=== PATIENT | male | born 1990 | race Asian ===

== ENCOUNTER 2018-08-12 19:31 | Inpatient (IN) | payer MEDICAID ==
[~2018-08-12] VITALS: Ht 172.7 cm; Wt 77.7 kg
[2018-08-12 19:59] VITALS: BP 89/91
[2018-08-12] MEDS ORDERED: Vancomycin 1 GM in NS 275 ML IV ONE (20:15)
[2018-08-12 20:53] LABS: BASOPHILS % (AUTO) 0.7 % (0.0-2.0); EOSINOPHILS % (AUTO) 0.6 % (0.0-3.0); HEMATOCRIT 48.8 % (42.0-52.0); HEMOGLOBIN 16.9 G/DL (14.2-18.0); LYMPHOCYTES % (AUTO) 10.3 % (20.0-45.0); MEAN CORPUSCULAR VOLUME 86 FL (80-99); MONOCYTES % (AUTO) 8.8 % (1.0-10.0); NEUTROPHILS % (AUTO) 79.6 % (45.0-75.0); PLATELET COUNT 201 K/UL (150-450); RED CELL DISTRIBUTION WIDTH 10.6 % (11.6-14.8); WHITE BLOOD COUNT 13.1 K/UL (4.8-10.8)
[2018-08-12 20:59] LABS: ANION GAP 9 mmol/L (5-15); BLOOD UREA NITROGEN 6 mg/dL (7-18); CALCIUM 9.3 MG/DL (8.5-10.1); CARBON DIOXIDE 28 MMOL/L (21-32); CHLORIDE 102 MMOL/L (98-107); POTASSIUM 3.4 MMOL/L (3.5-5.1); SODIUM 139 MMOL/L (136-145)
[2018-08-12 21:00] VITALS: BP 151/89
[2018-08-12 21:14] LABS: ALANINE AMINOTRANSFERASE 14 U/L (12-78); ALBUMIN/GLOBULIN RATIO 1.7 (1.0-2.7); ALKALINE PHOSPHATASE 78 U/L (46-116); ASPARTATE AMINO TRANSFERASE 13 U/L (15-37); BILIRUBIN,TOTAL 1.2 MG/DL (0.2-1.0)
[2018-08-12 21:17] LABS: BILIRUBIN,DIRECT 0.2 MG/DL (0.0-0.3)
[2018-08-12] MEDS ORDERED: Ketorolac 30mg Inj IV ONE (21:30)
[2018-08-12] MEDS ORDERED: Isovue-300 100ml vial INJ PRN (21:45)
--- NOTE | 2018-08-12 21:45 | Emergency Room Report ---
History of Present Illness General Chief Complaint: Edema Source: Patient (Kaylee Hoskins Liliane MARRERO) Present Illness HPI This patient states that he popped a pimple just inside of his right nare 2 days ago. He states that today he started having swelling just under his nare and in his right side of his face. He denies fever or chills. He denies nausea or vomiting. He has no other complaints. (Kaylee Hoskins DO) Allergies: Coded Allergies: No Known Allergies (Unverified , 08/12/18) Patient History Past Medical History: none, see triage record Social History: Denies: smoking, alcohol use, drug use Reviewed Nursing Documentation: PMH: Agreed; PSxH: Agreed (Kaylee Hoskins DO) Nursing Documentation-PMH Past Medical History: No Stated History (Kaylee Hoskins DO) Review of Systems All Other Systems: negative except mentioned in HPI (Kaylee Hoskins DO) Physical Exam Vital Signs Date Time Temp Pulse Resp B/P (MAP) Pulse Ox O2 Delivery O2 Flow Rate FiO2 08/12/18 19:51 98.8 90 16 144/91 (108) 96 Room Air Sp02 EP Interpretation: reviewed, normal General Appearance: no apparent distress, alert, GCS 15, non-toxic Head: normocephalic, atraumatic, other - R. nare with swelling just inferior to include R. upper lip and R. cheek. Eyes: bilateral eye normal inspection, bilateral eye PERRL ENT: hearing grossly normal, normal pharynx, no angioedema, normal voice Neck: full range of motion, supple/symm/no masses Respiratory: chest non-tender, lungs clear, normal breath sounds, no respiratory distress, no retraction, no accessory muscle use, speaking full sentences Cardiovascular #1: regular rate, rhythm, no edema Rectal: deferred Musculoskeletal: back normal, gait/station normal, normal range of motion, non- tender Neurologic: alert, oriented x3, responsive, motor strength/tone normal, sensory intact, speech normal Psychiatric: judgement/insight normal, memory normal, mood/affect normal, no suicidal/homicidal ideation Skin: warm/dry, well hydrated, other - See above in Head exam. (Kaylee Hoskins DO) Medical Decision Making Diagnostic Impression: Primary Impression: Facial cellulitis ER Course This patient has facial cellulitis that was rapidly progressive over a 24 hour period. I am concerned that this is MRSA and could rapidly worsen and cause significant facial cosmetic or emergency complications. The patient was given IV vancomycin and admitted for monitoring and IV abx. Laboratory Tests Test 08/12/18 20:22 White Blood Count 13.1 K/UL (4.8-10.8) H Red Blood Count 5.70 M/UL (4.70-6.10) Hemoglobin 16.9 G/DL (14.2-18.0) Hematocrit 48.8 % (42.0-52.0) Mean Corpuscular Volume 86 FL (80-99) Mean Corpuscular Hemoglobin 29.7 PG (27.0-31.0) Mean Corpuscular Hemoglobin Concent 34.6 G/DL (32.0-36.0) Red Cell Distribution Width 10.6 % (11.6-14.8) L Platelet Count 201 K/UL (150-450) Mean Platelet Volume 7.1 FL (6.5-10.1) Neutrophils (%) (Auto) 79.6 % (45.0-75.0) H Lymphocytes (%) (Auto) 10.3 % (20.0-45.0) L Monocytes (%) (Auto) 8.8 % (1.0-10.0) Eosinophils (%) (Auto) 0.6 % (0.0-3.0) Basophils (%) (Auto) 0.7 % (0.0-2.0) Sodium Level 139 MMOL/L (136-145) Potassium Level 3.4 MMOL/L (3.5-5.1) L Chloride Level 102 MMOL/L (98-107) Carbon Dioxide Level 28 MMOL/L (21-32) Anion Gap 9 mmol/L (5-15) Blood Urea Nitrogen 6 mg/dL (7-18) L Creatinine 1.0 MG/DL (0.55-1.30) Estimate Glomerular Filtration Rate > 60 mL/min (>60) Glucose Level 112 MG/DL (74-106) H Lactic Acid Level 1.00 mmol/L (0.4-2.0) Calcium Level 9.3 MG/DL (8.5-10.1) Total Bilirubin 1.2 MG/DL (0.2-1.0) H Direct Bilirubin 0.2 MG/DL (0.0-0.3) Aspartate Amino Transferase (AST) 13 U/L (15-37) L Alanine Aminotransferase (ALT) 14 U/L (12-78) Alkaline Phosphatase 78 U/L (46-116) Total Protein 7.9 G/DL (6.4-8.2) Albumin 5.0 G/DL (3.4-5.0) Globulin 2.9 g/dL Albumin/Globulin Ratio 1.7 (1.0-2.7) ([facility], [facility]) ER Course Patient signed out to mi. He has been admitted for facial cellulitis with possible abscess. CT scan signout to me. (Aldo Vasquez MD) CT/MRI/US Diagnostic Results CT/MRI/US Diagnostic Results : Imaging Test Ordered: CT max/facial Impression IMPRESSION: Facial cellulitis. No evidence of abscess ([facility], [facility]) CT/MRI/US Diagnostic Results : Imaging Test Ordered: CT facial bone Impression By radiologist. Soft tissue stranding within the right cheek subcutaneous fat. No fluid collection or abscess. Normal orbital bone. (Aldo Vasquez MD) Last Vital Signs Date Time Temp Pulse Resp B/P (MAP) Pulse Ox O2 Delivery O2 Flow Rate FiO2 08/12/18 19:59 98.8 80 16 89/91 97 Room Air ([facility]) Status: improved (Aldo Vasquez MD) Disposition: ADMITTED INPATIENT Condition: Serious Referrals: NOT CHOSEN IPA/,REFERRING (PCP) [facility] Aug 12, 2018 21:45 Aldo Vasquez MD Aug 12, 2018 22:42
[2018-08-12 22:00] VITALS: BP 132/87
[2018-08-12 23:00] VITALS: BP 121/75
[2018-08-13] VITALS: BP 125/68
[2018-08-13] MEDS ORDERED: NKM (00:22)
[2018-08-13 04:00] VITALS: BP 130/65
[2018-08-13 05:49] LABS: BASOPHILS % (AUTO) 0.9 % (0.0-2.0); EOSINOPHILS % (AUTO) 1.2 % (0.0-3.0); HEMATOCRIT 43.8 % (42.0-52.0); HEMOGLOBIN 15.3 G/DL (14.2-18.0); LYMPHOCYTES % (AUTO) 17.5 % (20.0-45.0); MEAN CORPUSCULAR VOLUME 87 FL (80-99); MONOCYTES % (AUTO) 9.2 % (1.0-10.0); NEUTROPHILS % (AUTO) 71.2 % (45.0-75.0); PLATELET COUNT 196 K/UL (150-450); RED BLOOD COUNT 5.05 M/UL (4.70-6.10); WHITE BLOOD COUNT 11.1 K/UL (4.8-10.8)
[2018-08-13 06:09] LABS: ANION GAP 8 mmol/L (5-15); BLOOD UREA NITROGEN 5 mg/dL (7-18); CALCIUM 8.2 MG/DL (8.5-10.1); CARBON DIOXIDE 25 MMOL/L (21-32); CHLORIDE 107 MMOL/L (98-107); CREATININE 0.9 MG/DL (0.55-1.30); POTASSIUM 3.5 MMOL/L (3.5-5.1); SODIUM 140 MMOL/L (136-145)
[2018-08-13 08:00] VITALS: BP 135/76
[2018-08-13] MEDS: Vancomycin 1gm/D5W 275ml IVPB SCH ×8 (08:12→21:51)
[2018-08-13] MEDS: Morphine Sulfate 2mg/ml Inj(IV/IM USE ONLY) IVP PRN ×4 (08:17→23:21)
--- NOTE | 2018-08-13 11:06 | Diagnostic Imaging Report ---
Indication: Cellulitis. Abscess. Technique: Continuous helical transaxial imaging of the maxillofacial structures obtained after intravenous contrast administration. Coronal 2-D reformats were also obtained. Study obtained in a Siemens sensation [address] Total Dose length Product (DLP): 585.[address] Dose Index Volume (CTDIvol): 28.19 mGy Comparison: None Findings: There is soft tissue thickening and stranding indicative of inflammation involving the premaxillary region just below the nose. Findings presently on the basis of cellulitis. There is no fluid collection identified to suggest abscess. Paranasal sinuses are clear. Mastoids are clear bilaterally. IMPRESSION: Facial cellulitis. No evidence of abscess
[2018-08-13 12:00] VITALS: BP 130/80
--- NOTE | 2018-08-13 13:15 | History and Physical Report ---
DATE OF ADMISSION: 08/12/2018 REASON FOR ADMISSION: Facial swelling. HISTORY OF PRESENT ILLNESS: The patient is a 28-year-old gentleman, who states he had burst his pimple on the inside of his right naris two days prior and since then, his nasal naris area and lip had become swollen. No nausea or vomiting. No fevers or chills. He was admitted for IV antibiotics. PAST MEDICAL HISTORY: None. FAMILY HISTORY: Noncontributory. PAST SURGICAL HISTORY: None. ALLERGIES: No known drug allergies. REVIEW OF SYSTEMS: NEUROLOGIC: The patient denies headache, change in vision, syncope, or presyncopal episodes. CARDIOVASCULAR: No current chest pain, palpitations, or angina. PULMONARY: No difficulty breathing, productive cough, or sputum. GASTROINTESTINAL/GENITOURINARY: No change in bowel habits. No nausea, vomiting, or diarrhea. ENDOCRINOLOGY: No night sweats, fevers, or chills. MUSCULOSKELETAL: The patient is feeling otherwise well. LABORATORY DATA: Laboratories dated August 13, 2018, sodium 140, potassium 3.5, creatinine 0.9, calcium 8.2. White cell count 11.1 and platelet count 196. PHYSICAL EXAMINATION: VITAL SIGNS: Blood pressure 130/65, respiratory rate 18, pulse 73, temperature 98.3, and 96% oxygen saturation on room air. GENERAL: The patient awake, alert, not otherwise in distress. HEENT: Extraocular muscles intact. No lymphadenopathy noted. Facial exam with right naris noted crusting and area swollen. CARDIOVASCULAR: S1, S2. No rubs or gallops. PULMONARY: Clear to auscultation bilaterally. No rales, rhonchi, or wheezes. ABDOMEN: Nondistended and nontender. EXTREMITIES: No edema. ASSESSMENT AND PLAN: 1. Facial cellulitis in the right naris area. CT of the face is currently still pending. Vancomycin was initiated and Infectious Disease consult placed for further evaluation and management. Anticipation and resolution of underlying infection and possible discharge tomorrow. 2. DVT prophylaxis with SCDs. 3. Continue antibiotics per Infectious Disease. Jose Ayoub MD DR: DILLAN/SOULEYMANE JOB#: [id number] CC:
--- NOTE | 2018-08-13 14:12 | Infectious Diseases Prog Note ---
Assessment/Plan Assessment/Plan Full consult to follow: right facial cellulitis CT M/F - no abscess but c/w cellulitis allergies negative vancomycin and unasyn monitor clinically thank you Subjective Allergies: Coded Allergies: No Known Allergies (Unverified , 08/12/18) Objective Vital Signs Last 24 Hour Vital Signs Date Time Temp Pulse Resp B/P (MAP) Pulse Ox O2 Delivery O2 Flow Rate FiO2 08/13/18 12:00 98.8 83 20 130/80 (97) 99 08/13/18 10:39 Room Air 08/13/18 08:00 98.3 79 20 135/76 (95) 98 08/13/18 04:00 98.3 73 18 130/65 (86) 96 08/13/18 00:28 Room Air 08/13/18 00:00 98.5 77 17 125/68 (87) 96 08/12/18 23:19 82 25 121/75 100 Room Air 08/12/18 23:00 98.8 80 22 121/75 99 Room Air 08/12/18 22:00 98.8 85 27 132/87 98 Room Air 08/12/18 21:44 98.8 08/12/18 21:00 98.8 82 22 151/89 100 Room Air 08/12/18 19:59 98.8 80 16 89/91 97 Room Air 08/12/18 19:59 80 18 Room Air 08/12/18 19:51 98.8 90 16 144/91 (108) 96 Room Air Height (Feet): 5 Height (Inches): 8.00 Weight (Pounds): 160 Laboratory Tests Test 08/12/18 20:22 08/13/18 05:03 White Blood Count 13.1 K/UL (4.8-10.8) H 11.1 K/UL (4.8-10.8) H Red Blood Count 5.70 M/UL (4.70-6.10) 5.05 M/UL (4.70-6.10) Hemoglobin 16.9 G/DL (14.2-18.0) 15.3 G/DL (14.2-18.0) Hematocrit 48.8 % (42.0-52.0) 43.8 % (42.0-52.0) Mean Corpuscular Volume 86 FL (80-99) 87 FL (80-99) Mean Corpuscular Hemoglobin 29.7 PG (27.0-31.0) 30.4 PG (27.0-31.0) Mean Corpuscular Hemoglobin Concent 34.6 G/DL (32.0-36.0) 35.0 G/DL (32.0-36.0) Red Cell Distribution Width 10.6 % (11.6-14.8) L 11.0 % (11.6-14.8) L Platelet Count 201 K/UL (150-450) 196 K/UL (150-450) Mean Platelet Volume 7.1 FL (6.5-10.1) 7.8 FL (6.5-10.1) Neutrophils (%) (Auto) 79.6 % (45.0-75.0) H 71.2 % (45.0-75.0) Lymphocytes (%) (Auto) 10.3 % (20.0-45.0) L 17.5 % (20.0-45.0) L Monocytes (%) (Auto) 8.8 % (1.0-10.0) 9.2 % (1.0-10.0) Eosinophils (%) (Auto) 0.6 % (0.0-3.0) 1.2 % (0.0-3.0) Basophils (%) (Auto) 0.7 % (0.0-2.0) 0.9 % (0.0-2.0) Sodium Level 139 MMOL/L (136-145) 140 MMOL/L (136-145) Potassium Level 3.4 MMOL/L (3.5-5.1) L 3.5 MMOL/L (3.5-5.1) Chloride Level 102 MMOL/L (98-107) 107 MMOL/L (98-107) Carbon Dioxide Level 28 MMOL/L (21-32) 25 MMOL/L (21-32) Anion Gap 9 mmol/L (5-15) 8 mmol/L (5-15) Blood Urea Nitrogen 6 mg/dL (7-18) L 5 mg/dL (7-18) L Creatinine 1.0 MG/DL (0.55-1.30) 0.9 MG/DL (0.55-1.30) Estimat Glomerular Filtration Rate > 60 mL/min (>60) > 60 mL/min (>60) Glucose Level 112 MG/DL (74-106) H 102 MG/DL (74-106) Lactic Acid Level 1.00 mmol/L (0.4-2.0) Calcium Level 9.3 MG/DL (8.5-10.1) 8.2 MG/DL (8.5-10.1) L Total Bilirubin 1.2 MG/DL (0.2-1.0) H Direct Bilirubin 0.2 MG/DL (0.0-0.3) Aspartate Amino Transf (AST/SGOT) 13 U/L (15-37) L Alanine Aminotransferase (ALT/SGPT) 14 U/L (12-78) Alkaline Phosphatase 78 U/L (46-116) Total Protein 7.9 G/DL (6.4-8.2) Albumin 5.0 G/DL (3.4-5.0) Globulin 2.9 g/dL Albumin/Globulin Ratio 1.7 (1.0-2.7) Current Medications Medications (Trade) Dose Ordered Sig/Salazar Route PRN Reason Start Time Stop Time Status Last Admin Dose Admin Acetaminophen (Tylenol) 650 mg Q4H PRN ORAL Mild Pain (Pain Scale 1-3) 08/12/18 22:30 09/11/18 22:29 Dextrose (Dextrose 50%) 25 ml Q30M PRN IV Hypoglycemia 08/12/18 22:30 09/11/18 22:29 Dextrose (Dextrose 50%) 50 ml Q30M PRN IV Hypoglycemia 08/12/18 22:30 09/11/18 22:29 Diphenhydramine HCl (Benadryl) 25 mg Q6H PRN ORAL Itching/Pruritis 08/12/18 22:30 09/11/18 22:29 Famotidine (Pepcid) 40 mg DAILY ORAL 08/13/18 09:00 09/12/18 08:59 08/13/18 08:12 Iopamidol (Isovue-300 100ml) 100 ml NOW PRN INJ Radiology Procedure 08/12/18 21:45 08/14/18 21:45 Morphine Sulfate (Morphine Sulfate) 1 mg Q6H PRN IVP For Pain 08/12/18 22:30 08/19/18 22:29 08/13/18 08:17 Ondansetron HCl (Zofran) 4 mg Q6H PRN IVP Nausea & Vomiting 08/12/18 22:30 09/11/18 22:29 Sodium Chloride 1,000 ml @ 100 mls/hr Q10H IV 08/12/18 22:30 09/11/18 22:29 08/13/18 08:12 Vancomycin HCl (Vanco rx to dose) 1 ea DAILY PRN MISC Per rx protocol 08/13/18 07:30 09/12/18 07:29 Vancomycin HCl 1 gm/Dextrose 275 ml @ 183.708 mls/hr Q8HR IVPB 08/13/18 08:00 08/18/18 07:59 08/13/18 08:12 Dariana Daily MD Aug 13, 2018 14:12
[2018-08-13 16:00] VITALS: BP 126/84
[2018-08-13] MEDS: Ampicillin/Sulbactam Sod 3 GM in NS 110 ML IVPB SCH ×2 (16:11→23:59)
[2018-08-13 20:00] VITALS: BP 136/91
[2018-08-14] VITALS: BP 134/87
[2018-08-14 04:00] VITALS: BP 141/92
[2018-08-14] MEDS: Morphine Sulfate 2mg/ml Inj(IV/IM USE ONLY) IVP PRN ×5 (04:03→20:20)
[2018-08-14] MEDS: Ampicillin/Sulbactam Sod 3 GM in NS 110 ML IVPB SCH ×4 (05:08→23:05)
[2018-08-14 05:23] LABS: HEMATOCRIT 44.4 % (42.0-52.0); HEMOGLOBIN 15.6 G/DL (14.2-18.0); LYMPHOCYTES % (AUTO) 16.1 % (20.0-45.0); MEAN CORPUSCULAR VOLUME 86 FL (80-99); MONOCYTES % (AUTO) 9.8 % (1.0-10.0); NEUTROPHILS % (AUTO) 71.2 % (45.0-75.0); PLATELET COUNT 190 K/UL (150-450); RED BLOOD COUNT 5.17 M/UL (4.70-6.10); RED CELL DISTRIBUTION WIDTH 10.9 % (11.6-14.8); WHITE BLOOD COUNT 10.9 K/UL (4.8-10.8)
[2018-08-14 05:41] LABS: ANION GAP 8 mmol/L (5-15); BLOOD UREA NITROGEN 2 mg/dL (7-18); CALCIUM 8.4 MG/DL (8.5-10.1); CARBON DIOXIDE 28 MMOL/L (21-32); CHLORIDE 105 MMOL/L (98-107); CREATININE 0.9 MG/DL (0.55-1.30); POTASSIUM 3.4 MMOL/L (3.5-5.1); SODIUM 141 MMOL/L (136-145)
[2018-08-14] MEDS: Vancomycin 1gm/D5W 275ml IVPB SCH ×6 (06:22→16:17)
--- NOTE | 2018-08-14 06:59 | Nephrology Progress Note ---
Assessment/Plan Assessment/Plan: A/P 1) Facial Cellulitis- No abscess - Vanc + Unasyn - DC patient on po Abx once cleared by ID 2) Dehydration- resolved. DC IVFs Subjective Date patient seen: Aug 14, 2018 Time patient seen: 06:58 ROS Limited/Unobtainable: No Allergies: Coded Allergies: No Known Allergies (Unverified , 08/12/18) Subjective Patient still with swollen face and lip Objective Last 24 Hour Vital Signs Date Time Temp Pulse Resp B/P (MAP) Pulse Ox O2 Delivery O2 Flow Rate FiO2 08/14/18 04:33 98.4 08/14/18 04:00 99.1 82 17 141/92 (108) 98 08/14/18 00:00 98.4 81 18 134/87 (103) 98 08/13/18 21:00 Room Air 08/13/18 20:00 98.6 78 17 136/91 (106) 98 08/13/18 16:00 98.5 89 19 126/84 (98) 98 08/13/18 12:00 98.8 83 20 130/80 (97) 99 08/13/18 10:39 Room Air 08/13/18 08:00 98.3 79 20 135/76 (95) 98 Intake and Output 08/13/18 08/14/18 19:00 07:00 Intake Total 2660.000 ml 2495.000 ml Balance 2660.000 ml 2495.000 ml Intake Oral 1200 ml 1000 ml IV Total 1460.000 ml 1495.000 ml # Voids 4 3 # Bowel Movements 1 Laboratory Tests 08/14/18 05:01: White Blood Count 10.9H, Red Blood Count 5.17, Hemoglobin 15.6, Hematocrit 44.4 , Mean Corpuscular Volume 86, Mean Corpuscular Hemoglobin 30.1, Mean Corpuscular Hemoglobin Concent 35.1, Red Cell Distribution Width 10.9L, Platelet Count 190, Mean Platelet Volume 8.1, Neutrophils (%) (Auto) 71.2, Lymphocytes (%) (Auto) 16.1L, Monocytes (%) (Auto) 9.8, Eosinophils (%) (Auto) 2.0, Basophils (%) (Auto) 1.0, Sodium Level 141, Potassium Level 3.4L, Chloride Level 105, Carbon Dioxide Level 28, Anion Gap 8, Blood Urea Nitrogen 2L, Creatinine 0.9, Estimat Glomerular Filtration Rate > 60, Glucose Level 108H, Calcium Level 8.4L, Vancomycin Level Trough 8.2 Height (Feet): 5 Height (Inches): 8.00 Weight (Pounds): 171 General Appearance: no apparent distress EENT: normal ENT inspection Neck: normal alignment Cardiovascular: normal rate, regular rhythm Respiratory/Chest: lungs clear, normal breath sounds Abdomen: non tender, soft Edema: no edema noted Arm (L), no edema noted Arm (R), no edema noted Leg (L), no edema noted Leg (R), no edema noted Pedal (L), no edema noted Pedal (R), no edema noted Generalized Jose Ayoub MD Aug 14, 2018 06:59
[2018-08-14 08:00] VITALS: BP 130/85
[2018-08-14 12:00] VITALS: BP 133/88
[2018-08-14 16:00] VITALS: BP 147/90
--- NOTE | 2018-08-14 16:10 | Infectious Diseases Prog Note ---
Assessment/Plan Assessment/Plan Full consult dictated: right facial cellulitis - still significant amount CT M/F - no abscess but c/w cellulitis allergies negative vancomycin and unasyn monitor clinically will follow Subjective Constitutional: Denies: fever HEENT: Denies: congestion Respiratory: Denies: shortness of breath Cardiovascular: Denies: chest pain Gastrointestinal/Abdominal: Denies: nausea, vomiting, diarrhea Allergies: Coded Allergies: No Known Allergies (Unverified , 08/12/18) Objective Vital Signs Last 24 Hour Vital Signs Date Time Temp Pulse Resp B/P (MAP) Pulse Ox O2 Delivery O2 Flow Rate FiO2 08/14/18 12:00 99.2 76 18 133/88 (103) 97 08/14/18 09:00 Room Air 08/14/18 08:00 99.4 76 18 130/85 (100) 99 08/14/18 04:33 98.4 08/14/18 04:00 99.1 82 17 141/92 (108) 98 08/14/18 00:00 98.4 81 18 134/87 (103) 98 08/13/18 21:00 Room Air 08/13/18 20:00 98.6 78 17 136/91 (106) 98 Height (Feet): 5 Height (Inches): 8.00 Weight (Pounds): 171 General Appearance: no acute distress HEENT: normocephalic, atraumatic, anicteric, mucous membranes moist Respiratory/Chest: lungs clear, normal breath sounds, no respiratory distress Cardiovascular: normal rate, regular rhythm Abdomen: soft, non tender, no organomegaly Laboratory Tests Test 08/14/18 05:01 White Blood Count 10.9 K/UL (4.8-10.8) H Red Blood Count 5.17 M/UL (4.70-6.10) Hemoglobin 15.6 G/DL (14.2-18.0) Hematocrit 44.4 % (42.0-52.0) Mean Corpuscular Volume 86 FL (80-99) Mean Corpuscular Hemoglobin 30.1 PG (27.0-31.0) Mean Corpuscular Hemoglobin Concent 35.1 G/DL (32.0-36.0) Red Cell Distribution Width 10.9 % (11.6-14.8) L Platelet Count 190 K/UL (150-450) Mean Platelet Volume 8.1 FL (6.5-10.1) Neutrophils (%) (Auto) 71.2 % (45.0-75.0) Lymphocytes (%) (Auto) 16.1 % (20.0-45.0) L Monocytes (%) (Auto) 9.8 % (1.0-10.0) Eosinophils (%) (Auto) 2.0 % (0.0-3.0) Basophils (%) (Auto) 1.0 % (0.0-2.0) Sodium Level 141 MMOL/L (136-145) Potassium Level 3.4 MMOL/L (3.5-5.1) L Chloride Level 105 MMOL/L (98-107) Carbon Dioxide Level 28 MMOL/L (21-32) Anion Gap 8 mmol/L (5-15) Blood Urea Nitrogen 2 mg/dL (7-18) L Creatinine 0.9 MG/DL (0.55-1.30) Estimat Glomerular Filtration Rate > 60 mL/min (>60) Glucose Level 108 MG/DL (74-106) H Calcium Level 8.4 MG/DL (8.5-10.1) L Vancomycin Level Trough 8.2 ug/mL (5.0-12.0) Current Medications Medications (Trade) Dose Ordered Sig/Salazar Route PRN Reason Start Time Stop Time Status Last Admin Dose Admin Acetaminophen (Tylenol) 650 mg Q4H PRN ORAL Mild Pain (Pain Scale 1-3) 08/12/18 22:30 09/11/18 22:29 Ampicillin Sodium/ Sulbactam Sodium 3 gm/Sodium Chloride 110 ml @ 220 mls/hr Q6HR IVPB 08/13/18 16:00 08/20/18 15:59 08/14/18 12:26 Dextrose (Dextrose 50%) 25 ml Q30M PRN IV Hypoglycemia 08/12/18 22:30 09/11/18 22:29 Dextrose (Dextrose 50%) 50 ml Q30M PRN IV Hypoglycemia 08/12/18 22:30 09/11/18 22:29 Diphenhydramine HCl (Benadryl) 25 mg Q6H PRN ORAL Itching/Pruritis 08/12/18 22:30 09/11/18 22:29 Famotidine (Pepcid) 40 mg DAILY ORAL 08/13/18 09:00 09/12/18 08:59 08/14/18 08:14 Iopamidol (Isovue-300 100ml) 100 ml NOW PRN INJ Radiology Procedure 08/12/18 21:45 08/14/18 21:45 Morphine Sulfate (Morphine Sulfate) 2 mg Q4H PRN IVP For Pain 08/14/18 14:22 08/21/18 14:21 Ondansetron HCl (Zofran) 4 mg Q6H PRN IVP Nausea & Vomiting 08/12/18 22:30 09/11/18 22:29 Vancomycin HCl (Vanco rx to dose) 1 ea DAILY PRN MISC Per rx protocol 08/13/18 07:30 09/12/18 07:29 Vancomycin HCl 1 gm/Dextrose 275 ml @ 183.708 mls/hr Q6H IVPB 08/14/18 11:00 08/19/18 10:59 08/14/18 10:50 Dariana Daily MD Aug 14, 2018 16:10
[2018-08-14 20:00] VITALS: BP 146/99
--- NOTE | 2018-08-14 22:45 | Consultation ---
DATE OF CONSULTATION: 08/14/2018 INFECTIOUS DISEASE CONSULTATION CONSULTING PHYSICIAN: Dariana Daily M.D. ATTENDING PHYSICIAN: Kain Barboza M.D. REFERRING PHYSICIAN: Jose Crowder M.D. REASON FOR CONSULTATION: Right facial preseptal cellulitis. CHIEF COMPLAINT: The patient's chief complaint coming in is right face cellulitis. HISTORY OF PRESENT ILLNESS: This is a very pleasant 28-year-old male, who comes in to the [facility] with right facial swelling. A CT scan of the maxillofacial area showed facial cellulitis. Most likely, this is facial preseptal cellulitis. There is no evidence of orbital cellulitis. The patient was started on vancomycin. I saw the patient yesterday and put him on Unasyn. PAST MEDICAL HISTORY: Otherwise negative. MEDICATIONS: Reviewed and noted. Antibiotics include vancomycin and Unasyn. ALLERGIES: No known drug allergies. FAMILY HISTORY: Noncontributory. SOCIAL HISTORY: Negative for IV drug abuse. REVIEW OF SYSTEMS: Main issue is right facial pain. No fevers, shortness of breath, chest pain, nausea, vomiting, or diarrhea. PHYSICAL EXAMINATION: VITAL SIGNS: Temperature 98.8, pulse rate 76, respiratory rate 17, blood pressure 147/90, and saturation 98%. GENERAL: Alert and responsive, in no distress. HEAD AND NECK: Oral exam, no thrush. Eye exam, no icterus. Normocephalic. He has right facial swelling, possible periorbital swelling and right facial cellulitis. Neck is supple. LUNGS: Clear bilaterally. No rhonchi or rales. HEART: Regular. No gallop or murmur. ABDOMEN: Soft. Positive bowel sounds. Nontender. NEUROLOGIC: Intact. SKIN: No other rash. LABORATORY DATA: White count 109 and hemoglobin 15.6. White count on admission was 13.1. Creatinine is 0.9. Maxillofacial CT shows findings consistent with facial cellulitis on the right. There is no abscess. ASSESSMENT AND PLAN: 1. The patient has right facial cellulitis. CT scan without abscess. Continue vancomycin and Unasyn. Most likely organisms will be Staph aureus including MRSA, however, anaerobic infection is a possibility. Also, less likely is gram-negatives. Continue Unasyn, it will have anaerobic coverage. Continue vancomycin and Unasyn for right facial cellulitis and watch the patient clinically. If the patient improves, consider transition to Augmentin and Bactrim for another week. However, he still has cellulitis clinically. Continue intravenous antibiotics vancomycin and Zosyn for now. 2. No known allergy. 3. No other significant past medical history. 4. Continue treatment per primary consultants. 5. Notes and records were noted. Orders were entered. Dariana Daily M.D. DR: BHAVESH JOB#: [id number] CC:
[2018-08-15] VITALS: BP 135/91
[2018-08-15] MEDS: Vancomycin 1gm/D5W 275ml IVPB SCH ×10 (00:01→23:00)
[2018-08-15] MEDS: Morphine Sulfate 2mg/ml Inj(IV/IM USE ONLY) IVP PRN ×6 (00:30→23:42)
[2018-08-15 04:00] VITALS: BP 132/86
[2018-08-15] MEDS: Ampicillin/Sulbactam Sod 3 GM in NS 110 ML IVPB SCH ×3 (06:05→18:19)
--- NOTE | 2018-08-15 07:00 | Nephrology Progress Note ---
Assessment/Plan Assessment/Plan: A/P 1) Facial Cellulitis- No abscess - Vanc + Unasyn to continue. WBC decreased - DC patient on po Abx once cleared by ID 2) Dehydration- resolved. 3) Patient requesting more pain medications Subjective Date patient seen: Aug 15, 2018 Time patient seen: 06:58 Allergies: Coded Allergies: No Known Allergies (Unverified , 08/12/18) Subjective Patient still with swollen face and lip. C/O discomfort Objective Last 24 Hour Vital Signs Date Time Temp Pulse Resp B/P (MAP) Pulse Ox O2 Delivery O2 Flow Rate FiO2 08/15/18 04:00 99.2 67 20 132/86 (101) 97 08/15/18 01:00 98.9 08/15/18 00:00 98.9 74 18 135/91 (106) 97 08/14/18 21:00 Room Air 08/14/18 20:00 99.0 83 20 146/99 (115) 95 08/14/18 16:00 98.8 76 17 147/90 (109) 98 08/14/18 12:00 99.2 76 18 133/88 (103) 97 08/14/18 09:00 Room Air 08/14/18 08:00 99.4 76 18 130/85 (100) 99 Intake and Output 08/14/18 08/15/18 19:00 07:00 Intake Total 1376.000 ml 770.000 ml Balance 1376.000 ml 770.000 ml Intake Oral 600 ml IV Total 776.000 ml 770.000 ml # Voids 3 Laboratory Tests 08/15/18 06:21: White Blood Count [Pending], Red Blood Count [Pending], Hemoglobin [Pending], Hematocrit [Pending], Mean Corpuscular Volume [Pending], Mean Corpuscular Hemoglobin [Pending], Mean Corpuscular Hemoglobin Concent [Pending], Red Cell Distribution Width [Pending], Platelet Count [Pending], Mean Platelet Volume [ Pending], Neutrophils (%) (Auto) [Pending], Lymphocytes (%) (Auto) [Pending], Monocytes (%) (Auto) [Pending], Eosinophils (%) (Auto) [Pending], Basophils (%) (Auto) [Pending], Sodium Level [Pending], Potassium Level [Pending], Chloride Level [Pending], Carbon Dioxide Level [Pending], Blood Urea Nitrogen [Pending], Creatinine [Pending], Estimat Glomerular Filtration Rate [Pending], Glucose Level [Pending], Calcium Level [Pending] Height (Feet): 5 Height (Inches): 8.00 Weight (Pounds): 171 Objective right side of face and lip swollen Jose Ayoub MD Aug 15, 2018 06:59
[2018-08-15 07:08] LABS: EOSINOPHILS % (AUTO) 2.8 % (0.0-3.0); HEMATOCRIT 47.8 % (42.0-52.0); HEMOGLOBIN 16.8 G/DL (14.2-18.0); LYMPHOCYTES % (AUTO) 17.9 % (20.0-45.0); MEAN CORPUSCULAR VOLUME 87 FL (80-99); MONOCYTES % (AUTO) 8.7 % (1.0-10.0); NEUTROPHILS % (AUTO) 69.6 % (45.0-75.0); PLATELET COUNT 233 K/UL (150-450); RED BLOOD COUNT 5.52 M/UL (4.70-6.10); RED CELL DISTRIBUTION WIDTH 10.7 % (11.6-14.8); WHITE BLOOD COUNT 10.4 K/UL (4.8-10.8)
[2018-08-15 07:32] LABS: ANION GAP 5 mmol/L (5-15); BLOOD UREA NITROGEN 4 mg/dL (7-18); CALCIUM 9.1 MG/DL (8.5-10.1); CARBON DIOXIDE 31 MMOL/L (21-32); CHLORIDE 101 MMOL/L (98-107); POTASSIUM 3.6 MMOL/L (3.5-5.1); SODIUM 137 MMOL/L (136-145)
[2018-08-15 08:00] VITALS: BP 138/68
[2018-08-15 12:00] VITALS: BP 141/79
[2018-08-15 16:00] VITALS: BP 139/95
[2018-08-15 20:00] VITALS: BP 144/94
[2018-08-16] VITALS: BP 143/89
[2018-08-16] MEDS: Ampicillin/Sulbactam Sod 3 GM in NS 110 ML IVPB SCH ×4 (00:16→18:47)
[2018-08-16] MEDS: Vancomycin 1.25gm Premix 275 ML IVPB SCH ×3 (01:28→13:25)
[2018-08-16] MEDS: Morphine Sulfate 2mg/ml Inj(IV/IM USE ONLY) IVP PRN ×5 (03:46→21:44)
[2018-08-16 04:00] VITALS: BP 132/83
[2018-08-16 07:28] LABS: BASOPHILS % (AUTO) 2.7 % (0.0-2.0); EOSINOPHILS % (AUTO) 2.5 % (0.0-3.0); HEMATOCRIT 50.1 % (42.0-52.0); HEMOGLOBIN 17.1 G/DL (14.2-18.0); LYMPHOCYTES % (AUTO) 22.4 % (20.0-45.0); MEAN CORPUSCULAR VOLUME 89 FL (80-99); MONOCYTES % (AUTO) 8.6 % (1.0-10.0); NEUTROPHILS % (AUTO) 63.8 % (45.0-75.0); PLATELET COUNT 213 K/UL (150-450); RED BLOOD COUNT 5.62 M/UL (4.70-6.10); RED CELL DISTRIBUTION WIDTH 11.3 % (11.6-14.8); WHITE BLOOD COUNT 9.8 K/UL (4.8-10.8)
[2018-08-16 08:28] VITALS: BP 130/76
[2018-08-16 12:44] VITALS: BP 135/89
--- NOTE | 2018-08-16 15:48 | Infectious Diseases Prog Note ---
Assessment/Plan Assessment/Plan Full consult dictated: A) right facial cellulitis - improved monitor localized lip redness, ? early abscess but no fluctuance, ? cellulitis CT M/F - no abscess but c/w cellulitis allergies negative P) vancomycin and augmentin (unasyn shortage per d/w pharmacy) monitor clinically oral antibiotics soon if continues to improve - bactrim plus augmentin Subjective Constitutional: Denies: fever HEENT: Denies: congestion Respiratory: Denies: shortness of breath Cardiovascular: Denies: chest pain Gastrointestinal/Abdominal: Denies: nausea, vomiting Neurologic: Denies: headache Allergies: Coded Allergies: No Known Allergies (Unverified , 08/12/18) Objective Vital Signs Last 24 Hour Vital Signs Date Time Temp Pulse Resp B/P (MAP) Pulse Ox O2 Delivery O2 Flow Rate FiO2 08/16/18 12:44 98.7 75 18 135/89 (104) 97 08/16/18 09:00 Room Air 08/16/18 08:28 98.7 73 16 130/76 (94) 97 08/16/18 04:00 98.7 64 16 132/83 (99) 99 08/16/18 00:00 98.4 69 16 143/89 (107) 98 08/15/18 21:00 Room Air 08/15/18 20:00 99.3 71 18 144/94 (111) 98 08/15/18 16:00 97.8 77 22 139/95 (110) 98 Height (Feet): 5 Height (Inches): 8.00 Weight (Pounds): 171 General Appearance: no acute distress HEENT: normocephalic, atraumatic, anicteric, other - less right facial swelling , + lip redness - ? abscess but no fluctuance Respiratory/Chest: lungs clear, normal breath sounds, no respiratory distress, no accessory muscle use Cardiovascular: normal rate, regular rhythm, no gallop/murmur Abdomen: normal bowel sounds, soft, non tender, no organomegaly, non distended Genitourinary: other - no jones Extremities: no cyanosis Skin: no rash, no lesions Neurologic/Psychiatric: bacon stringer II-XII grossly normal, alert, responsive Lymphatic: no neck adenopathy Musculoskeletal: normal muscle bulk Objective Procedure: CT Maxillofacial w Contrast Indication: Cellulitis. Abscess. Technique: Continuous helical transaxial imaging of the maxillofacial structures obtained after intravenous contrast administration. Coronal 2-D reformats were also obtained. Study obtained in a Siemens sensation [address] Total Dose length Product (DLP): 585.[address] Dose Index Volume (CTDIvol): 28.19 mGy Comparison: None Findings: There is soft tissue thickening and stranding indicative of inflammation involving the premaxillary region just below the nose. Findings presently on the basis of cellulitis. There is no fluid collection identified to suggest abscess. Paranasal sinuses are clear. Mastoids are clear bilaterally. IMPRESSION: Facial cellulitis. No evidence of abscess Microbiology Date/Time Source Procedure Growth Status 08/12/18 20:37 Blood Blood Culture - Preliminary NO GROWTH AFTER 72 HOURS Resulted Laboratory Tests Test 08/15/18 22:30 08/16/18 05:10 Vancomycin Level Trough 14.4 ug/mL (5.0-12.0) H White Blood Count 9.8 K/UL (4.8-10.8) Red Blood Count 5.62 M/UL (4.70-6.10) Hemoglobin 17.1 G/DL (14.2-18.0) Hematocrit 50.1 % (42.0-52.0) Mean Corpuscular Volume 89 FL (80-99) Mean Corpuscular Hemoglobin 30.5 PG (27.0-31.0) Mean Corpuscular Hemoglobin Concent 34.1 G/DL (32.0-36.0) Red Cell Distribution Width 11.3 % (11.6-14.8) L Platelet Count 213 K/UL (150-450) Mean Platelet Volume 7.3 FL (6.5-10.1) Neutrophils (%) (Auto) 63.8 % (45.0-75.0) Lymphocytes (%) (Auto) 22.4 % (20.0-45.0) Monocytes (%) (Auto) 8.6 % (1.0-10.0) Eosinophils (%) (Auto) 2.5 % (0.0-3.0) Basophils (%) (Auto) 2.7 % (0.0-2.0) H Current Medications Medications (Trade) Dose Ordered Sig/Salazar Route PRN Reason Start Time Stop Time Status Last Admin Dose Admin Acetaminophen (Tylenol) 650 mg Q4H PRN ORAL Mild Pain (Pain Scale 1-3) 08/12/18 22:30 09/11/18 22:29 08/15/18 13:43 Acetaminophen/ Hydrocodone Bitart ([place] 5/325) 1 tab Q4H PRN ORAL Moderate Pain (Pain Scale 4-6) 08/15/18 07:00 08/22/18 06:59 Ampicillin Sodium/ Sulbactam Sodium 3 gm/Sodium Chloride 110 ml @ 220 mls/hr Q6HR IVPB 08/13/18 16:00 08/16/18 19:00 08/16/18 12:30 Dextrose (Dextrose 50%) 25 ml Q30M PRN IV Hypoglycemia 08/12/18 22:30 09/11/18 22:29 Dextrose (Dextrose 50%) 50 ml Q30M PRN IV Hypoglycemia 08/12/18 22:30 09/11/18 22:29 Diphenhydramine HCl (Benadryl) 25 mg Q6H PRN ORAL Itching/Pruritis 08/12/18 22:30 09/11/18 22:29 Famotidine (Pepcid) 40 mg DAILY ORAL 08/13/18 09:00 09/12/18 08:59 08/16/18 08:45 Morphine Sulfate (Morphine Sulfate) 2 mg Q4H PRN IVP For Pain 08/14/18 14:22 08/21/18 14:21 08/16/18 13:16 Ondansetron HCl (Zofran) 4 mg Q6H PRN IVP Nausea & Vomiting 08/12/18 22:30 09/11/18 22:29 Vancomycin HCl (Vanco rx to dose) 1 ea DAILY PRN MISC Per rx protocol 08/13/18 07:30 09/12/18 07:29 Vancomycin HCl/ Dextrose 275 ml @ 184 mls/hr Q6H IVPB 08/16/18 00:00 08/21/18 00:00 08/16/18 13:25 Dariana Daily MD Aug 16, 2018 15:48
[2018-08-16 16:40] VITALS: BP 114/75
--- NOTE | 2018-08-16 19:07 | Nephrology Progress Note ---
Assessment/Plan Assessment/Plan: A/P 1) Facial Cellulitis- No abscess - vancomycin and augmentin -oral antibiotics soon if continues to improve - bactrim plus augmentin - DC patient on po Abx once cleared by ID 2) Dehydration- resolved. 3) Patient requesting more pain medications Subjective Date patient seen: Aug 16, 2018 Time patient seen: 19:06 ROS Limited/Unobtainable: No Allergies: Coded Allergies: No Known Allergies (Unverified , 08/12/18) Subjective Patient facial swelling and lip much improved Objective Last 24 Hour Vital Signs Date Time Temp Pulse Resp B/P (MAP) Pulse Ox O2 Delivery O2 Flow Rate FiO2 08/16/18 16:40 98.4 70 18 114/75 (88) 100 08/16/18 12:44 98.7 75 18 135/89 (104) 97 08/16/18 09:00 Room Air 08/16/18 08:28 98.7 73 16 130/76 (94) 97 08/16/18 04:00 98.7 64 16 132/83 (99) 99 08/16/18 00:00 98.4 69 16 143/89 (107) 98 08/15/18 21:00 Room Air 08/15/18 20:00 99.3 71 18 144/94 (111) 98 Intake and Output 08/15/18 08/16/18 19:00 07:00 Intake Total 678.708 ml 385 ml Balance 678.708 ml 385 ml IV Total 678.708 ml 385 ml # Voids 5 3 Laboratory Tests 08/15/18 22:30: Vancomycin Level Trough 14.4H 08/16/18 05:10: White Blood Count 9.8, Red Blood Count 5.62, Hemoglobin 17.1, Hematocrit 50.1, Mean Corpuscular Volume 89, Mean Corpuscular Hemoglobin 30.5, Mean Corpuscular Hemoglobin Concent 34.1, Red Cell Distribution Width 11.3L, Platelet Count 213, Mean Platelet Volume 7.3, Neutrophils (%) (Auto) 63.8, Lymphocytes (%) (Auto) 22.4, Monocytes (%) (Auto) 8.6, Eosinophils (%) (Auto) 2.5, Basophils (%) (Auto ) 2.7H 08/16/18 17:00: Vancomycin Level Trough 27.6H Height (Feet): 5 Height (Inches): 8.00 Weight (Pounds): 171 Objective right side of face and lip swollen Jose Ayoub MD Aug 16, 2018 19:07
[2018-08-16 20:00] VITALS: BP 119/70
[2018-08-16] MEDS: Augmentin 875mg Tab ORAL SCH (21:44)
[2018-08-16] MEDS ORDERED: Zoysn 3.37gm in NS 100ML IVPB SCH (22:00)
[2018-08-17] VITALS: BP 135/85
[2018-08-17] MEDS: Morphine Sulfate 2mg/ml Inj(IV/IM USE ONLY) IVP PRN ×5 (01:45→20:25)
[2018-08-17 04:00] VITALS: BP 125/77
[2018-08-17 06:07] LABS: BASOPHILS % (AUTO) 1.7 % (0.0-2.0); EOSINOPHILS % (AUTO) 4.6 % (0.0-3.0); HEMATOCRIT 50.5 % (42.0-52.0); HEMOGLOBIN 17.7 G/DL (14.2-18.0); LYMPHOCYTES % (AUTO) 28.3 % (20.0-45.0); MEAN CORPUSCULAR VOLUME 86 FL (80-99); MONOCYTES % (AUTO) 10.1 % (1.0-10.0); NEUTROPHILS % (AUTO) 55.4 % (45.0-75.0); PLATELET COUNT 248 K/UL (150-450); RED BLOOD COUNT 5.84 M/UL (4.70-6.10); RED CELL DISTRIBUTION WIDTH 10.4 % (11.6-14.8); WHITE BLOOD COUNT 6.9 K/UL (4.8-10.8)
[2018-08-17 06:41] LABS: ANION GAP 9 mmol/L (5-15); BLOOD UREA NITROGEN 7 mg/dL (7-18); CALCIUM 9.7 MG/DL (8.5-10.1); CARBON DIOXIDE 31 MMOL/L (21-32); CHLORIDE 101 MMOL/L (98-107); POTASSIUM 4.4 MMOL/L (3.5-5.1); SODIUM 141 MMOL/L (136-145)
--- NOTE | 2018-08-17 07:06 | Nephrology Progress Note ---
Assessment/Plan Assessment/Plan: A/P 1) Facial Cellulitis- No abscess - vancomycin and augmentin -oral antibiotics at DC - bactrim plus augmentin - DC patient on po Abx once cleared by ID 2) Dehydration- resolved. 3) Patient requesting more pain medications Subjective Date patient seen: Aug 17, 2018 Time patient seen: 07:05 Allergies: Coded Allergies: No Known Allergies (Unverified , 08/12/18) Subjective Patient facial swelling and lipi mproved Objective Last 24 Hour Vital Signs Date Time Temp Pulse Resp B/P (MAP) Pulse Ox O2 Delivery O2 Flow Rate FiO2 08/17/18 04:00 97.9 58 18 125/77 (93) 98 08/17/18 02:15 98.4 08/17/18 00:00 98.4 66 18 135/85 (102) 99 08/16/18 21:00 Room Air 08/16/18 20:00 98.5 77 18 119/70 (86) 96 08/16/18 16:40 98.4 70 18 114/75 (88) 100 08/16/18 12:44 98.7 75 18 135/89 (104) 97 08/16/18 09:00 Room Air 08/16/18 08:28 98.7 73 16 130/76 (94) 97 Intake and Output 08/16/18 08/17/18 19:00 07:00 Intake Total 1200 ml 360 ml Balance 1200 ml 360 ml Intake Oral 1200 ml 360 ml # Voids 1 Laboratory Tests 08/16/18 17:00: Vancomycin Level Trough 27.6H 08/17/18 04:55: White Blood Count 6.9, Red Blood Count 5.84, Hemoglobin 17.7, Hematocrit 50.5, Mean Corpuscular Volume 86, Mean Corpuscular Hemoglobin 30.3, Mean Corpuscular Hemoglobin Concent 35.1, Red Cell Distribution Width 10.4L, Platelet Count 248, Mean Platelet Volume 8.1, Neutrophils (%) (Auto) 55.4, Lymphocytes (%) (Auto) 28.3, Monocytes (%) (Auto) 10.1H, Eosinophils (%) (Auto) 4.6H, Basophils (%) ( Auto) 1.7, Sodium Level 141, Potassium Level 4.4, Chloride Level 101, Carbon Dioxide Level 31, Anion Gap 9, Blood Urea Nitrogen 7, Creatinine 1.0, Estimat Glomerular Filtration Rate > 60, Glucose Level 94, Calcium Level 9.7, Random Vancomycin Level 6.1 Height (Feet): 5 Height (Inches): 8.00 Weight (Pounds): 171 General Appearance: no apparent distress EENT: normal ENT inspection Neck: normal alignment, supple Cardiovascular: normal rate, regular rhythm Abdomen: non tender, soft Edema: no edema noted Arm (L), no edema noted Arm (R), no edema noted Leg (L), no edema noted Leg (R), no edema noted Pedal (L), no edema noted Pedal (R), no edema noted Generalized Objective right side of face and lip swollen Jose Ayoub MD Aug 17, 2018 07:06
[2018-08-17 08:00] VITALS: BP 126/78
[2018-08-17] MEDS: Augmentin 875mg Tab ORAL SCH ×2 (08:21→20:24)
[2018-08-17] MEDS: Vancomycin 1gm/D5W 275ml IVPB SCH ×6 (10:27→22:33)
[2018-08-17 12:00] VITALS: BP 138/82
[2018-08-17 16:00] VITALS: BP 145/98
[2018-08-17 20:00] VITALS: BP 130/76
[2018-08-18] VITALS: BP 139/83
[2018-08-18] MEDS: Morphine Sulfate 2mg/ml Inj(IV/IM USE ONLY) IVP PRN ×2 (00:24→04:22)
[2018-08-18 04:00] VITALS: BP 140/80
[2018-08-18] MEDS: Vancomycin 1gm/D5W 275ml IVPB SCH ×6 (04:16→21:13)
--- NOTE | 2018-08-18 07:33 | Nephrology Progress Note ---
Assessment/Plan Assessment/Plan: A/P 1) Facial Cellulitis- No abscess - vancomycin and augmentin -DC tomorrow on oral antibiotics at DC - bactrim plus augmentin 2) Dehydration- resolved. 3) Patient requesting more pain medications When told he was going home, but became anxious and sais he was SOB?? CXR and DC home tomorrow. Will Now start stopping IV pain meds Subjective Date patient seen: Aug 18, 2018 Time patient seen: 07:31 Allergies: Coded Allergies: No Known Allergies (Unverified , 08/12/18) Subjective Patient facial swelling and lip much improved Objective Last 24 Hour Vital Signs Date Time Temp Pulse Resp B/P (MAP) Pulse Ox O2 Delivery O2 Flow Rate FiO2 08/18/18 04:00 97.4 71 18 140/80 (100) 97 08/18/18 00:00 98.4 69 18 139/83 (101) 97 08/17/18 21:00 Room Air 08/17/18 20:00 97.9 75 18 130/76 (94) 97 08/17/18 16:00 98.9 79 17 145/98 (114) 96 08/17/18 12:00 98.2 63 16 138/82 (100) 98 08/17/18 08:15 Room Air 08/17/18 08:00 98.2 60 17 126/78 (94) 98 Intake and Output 08/17/18 08/18/18 19:00 07:00 Intake Total 1550.000 ml 2234.832 ml Balance 1550.000 ml 2234.832 ml Intake Oral 1000 ml 500 ml IV Total 550.000 ml 1734.832 ml # Voids 2 3 # Bowel Movements 1 Height (Feet): 5 Height (Inches): 8.00 Weight (Pounds): 171 General Appearance: no apparent distress, alert EENT: normal ENT inspection Neck: normal alignment, supple Cardiovascular: normal rate, regular rhythm Respiratory/Chest: lungs clear, normal breath sounds Abdomen: non tender, soft Edema: no edema noted Arm (L), no edema noted Arm (R), no edema noted Leg (L), no edema noted Leg (R), no edema noted Pedal (L), no edema noted Pedal (R), no edema noted Generalized Objective right side of face and lip swollen Jose Ayoub MD Aug 18, 2018 07:33
[2018-08-18 08:00] VITALS: BP 137/83
[2018-08-18] MEDS: Augmentin 875mg Tab ORAL SCH ×2 (08:22→20:05)
[2018-08-18] MEDS: HYDROcodone/Acetamin 5/325 tab ORAL PRN ×4 (08:23→23:52)
[2018-08-18 09:28] LABS: BASOPHILS % (AUTO) 2.1 % (0.0-2.0); EOSINOPHILS % (AUTO) 4.6 % (0.0-3.0); HEMATOCRIT 49.2 % (42.0-52.0); HEMOGLOBIN 17.8 G/DL (14.2-18.0); LYMPHOCYTES % (AUTO) 23.2 % (20.0-45.0); MEAN CORPUSCULAR VOLUME 82 FL (80-99); NEUTROPHILS % (AUTO) 60.2 % (45.0-75.0); PLATELET COUNT 240 K/UL (150-450); RED BLOOD COUNT 5.97 M/UL (4.70-6.10); WHITE BLOOD COUNT 6.3 K/UL (4.8-10.8)
--- NOTE | 2018-08-18 09:32 | Diagnostic Imaging Report ---
EXAM: XR Chest, 1 View. CLINICAL HISTORY: COUGH TECHNIQUE: Frontal view of the chest. COMPARISON: No relevant prior studies available. FINDINGS: Lungs: Unremarkable. No consolidation. Pleural spaces: Unremarkable. No pneumothorax. Heart: Unremarkable. No cardiomegaly. Mediastinum: Unremarkable. Bones: Unremarkable. No acute fracture. IMPRESSION: No evidence of active cardiopulmonary abnormality.
[2018-08-18 09:45] LABS: ANION GAP 7 mmol/L (5-15); BLOOD UREA NITROGEN 10 mg/dL (7-18); CALCIUM 9.6 MG/DL (8.5-10.1); CARBON DIOXIDE 34 MMOL/L (21-32); CHLORIDE 102 MMOL/L (98-107); POTASSIUM 4.2 MMOL/L (3.5-5.1); SODIUM 143 MMOL/L (136-145)
[2018-08-18] MEDS ORDERED: Morphine Sulfate 2mg/ml Inj(IV/IM USE ONLY) IVP SCH ×2 (10:34→10:42)
[2018-08-18 12:10] VITALS: BP 128/71
--- NOTE | 2018-08-18 13:20 | Infectious Diseases Prog Note ---
Assessment/Plan Assessment/Plan A) right facial cellulitis - improved monitor localized lip redness, ? early abscess but no fluctuance, ? cellulitis CT M/F - no abscess but c/w cellulitis allergies negative P) vancomycin and augmentin (unasyn shortage per d/w pharmacy) monitor clinically oral antibiotics soon if continues to improve - bactrim plus augmentin Subjective ROS Limited/Unobtainable: No Constitutional: Reports: no symptoms HEENT: Reports: other - nasal bleeding Respiratory: Reports: no symptoms Cardiovascular: Reports: no symptoms Gastrointestinal/Abdominal: Reports: no symptoms Genitourinary: Reports: no symptoms Allergies: Coded Allergies: No Known Allergies (Unverified , 08/12/18) Objective Vital Signs Last 24 Hour Vital Signs Date Time Temp Pulse Resp B/P (MAP) Pulse Ox O2 Delivery O2 Flow Rate FiO2 08/18/18 12:10 98.2 68 19 128/71 (90) 97 08/18/18 08:05 Room Air 08/18/18 08:00 97.5 72 18 137/83 (101) 98 08/18/18 04:00 97.4 71 18 140/80 (100) 97 08/18/18 00:00 98.4 69 18 139/83 (101) 97 08/17/18 21:00 Room Air 08/17/18 20:00 97.9 75 18 130/76 (94) 97 08/17/18 16:00 98.9 79 17 145/98 (114) 96 Height (Feet): 5 Height (Inches): 8.00 Weight (Pounds): 171 HEENT: mucous membranes moist, other - R nostril bleeding Respiratory/Chest: lungs clear Cardiovascular: normal rate Abdomen: soft, non tender Extremities: no edema Skin: other - decreased facial swelling Neurologic/Psychiatric: alert, oriented x 3, responsive Laboratory Tests Test 08/18/18 08:45 White Blood Count 6.3 K/UL (4.8-10.8) Red Blood Count 5.97 M/UL (4.70-6.10) Hemoglobin 17.8 G/DL (14.2-18.0) Hematocrit 49.2 % (42.0-52.0) Mean Corpuscular Volume 82 FL (80-99) Mean Corpuscular Hemoglobin 29.8 PG (27.0-31.0) Mean Corpuscular Hemoglobin Concent 36.1 G/DL (32.0-36.0) H Red Cell Distribution Width 10.0 % (11.6-14.8) L Platelet Count 240 K/UL (150-450) Mean Platelet Volume 6.3 FL (6.5-10.1) L Neutrophils (%) (Auto) 60.2 % (45.0-75.0) Lymphocytes (%) (Auto) 23.2 % (20.0-45.0) Monocytes (%) (Auto) 10.0 % (1.0-10.0) Eosinophils (%) (Auto) 4.6 % (0.0-3.0) H Basophils (%) (Auto) 2.1 % (0.0-2.0) H Sodium Level 143 MMOL/L (136-145) Potassium Level 4.2 MMOL/L (3.5-5.1) Chloride Level 102 MMOL/L (98-107) Carbon Dioxide Level 34 MMOL/L (21-32) H Anion Gap 7 mmol/L (5-15) Blood Urea Nitrogen 10 mg/dL (7-18) Creatinine 1.0 MG/DL (0.55-1.30) Estimat Glomerular Filtration Rate > 60 mL/min (>60) Glucose Level 80 MG/DL (74-106) Calcium Level 9.6 MG/DL (8.5-10.1) Vancomycin Level Trough 19.9 ug/mL (5.0-12.0) H Current Medications Medications (Trade) Dose Ordered Sig/Salazar Route PRN Reason Start Time Stop Time Status Last Admin Dose Admin Acetaminophen/ Hydrocodone Bitart ([place] 5/325) 1 tab Q4H PRN ORAL Moderate Pain (Pain Scale 4-6) 08/15/18 07:00 08/22/18 06:59 08/18/18 08:23 Amoxicillin/ Clavulanate Potassium (Augmentin) 875 mg EVERY 12 HOURS ORAL 08/16/18 21:00 08/23/18 20:59 08/18/18 08:22 Dextrose (Dextrose 50%) 25 ml Q30M PRN IV Hypoglycemia 08/12/18 22:30 09/11/18 22:29 Dextrose (Dextrose 50%) 50 ml Q30M PRN IV Hypoglycemia 08/12/18 22:30 09/11/18 22:29 Diphenhydramine HCl (Benadryl) 25 mg Q6H PRN ORAL Itching/Pruritis 08/12/18 22:30 09/11/18 22:29 Famotidine (Pepcid) 40 mg DAILY ORAL 08/13/18 09:00 09/12/18 08:59 08/18/18 08:22 Ondansetron HCl (Zofran) 4 mg Q6H PRN IVP Nausea & Vomiting 08/12/18 22:30 09/11/18 22:29 Vancomycin HCl (Vanco rx to dose) 1 ea DAILY PRN MISC Per rx protocol 08/13/18 07:30 09/12/18 07:29 Vancomycin HCl 1 gm/Dextrose 275 ml @ 183.708 mls/hr Q8HR IVPB 08/18/18 14:00 08/23/18 13:59 Humphrey Jason MD Aug 18, 2018 13:20
[2018-08-18 16:11] VITALS: BP 125/75
[2018-08-18 20:00] VITALS: BP 134/91
[2018-08-19] VITALS (7 sets, daily range): BP systolic 119–146; BP diastolic 65–94
[2018-08-19] MEDS: Vancomycin 1gm/D5W 275ml IVPB SCH ×6 (05:21→22:06)
[2018-08-19] MEDS: HYDROcodone/Acetamin 5/325 tab ORAL PRN ×3 (05:38→20:08)
[2018-08-19 06:39] LABS: BASOPHILS % (AUTO) 2.2 % (0.0-2.0); EOSINOPHILS % (AUTO) 5.3 % (0.0-3.0); HEMATOCRIT 52.8 % (42.0-52.0); LYMPHOCYTES % (AUTO) 33.8 % (20.0-45.0); MEAN CORPUSCULAR VOLUME 87 FL (80-99); MONOCYTES % (AUTO) 7.9 % (1.0-10.0); NEUTROPHILS % (AUTO) 50.7 % (45.0-75.0); PLATELET COUNT 252 K/UL (150-450); RED BLOOD COUNT 6.04 M/UL (4.70-6.10); RED CELL DISTRIBUTION WIDTH 10.6 % (11.6-14.8); WHITE BLOOD COUNT 5.9 K/UL (4.8-10.8)
[2018-08-19 06:55] LABS: ANION GAP 6 mmol/L (5-15); BLOOD UREA NITROGEN 7 mg/dL (7-18); CALCIUM 9.7 MG/DL (8.5-10.1); CARBON DIOXIDE 33 MMOL/L (21-32); CHLORIDE 102 MMOL/L (98-107); POTASSIUM 4.2 MMOL/L (3.5-5.1); SODIUM 140 MMOL/L (136-145)
[2018-08-19 06:59] LABS: HEMOGLOBIN 18.2 G/DL (14.2-18.0)
[2018-08-19 07:28] LABS: BASOPHILS % (AUTO) 2.2 % (0.0-2.0); EOSINOPHILS % (AUTO) 5.8 % (0.0-3.0); HEMATOCRIT 52.7 % (42.0-52.0); LYMPHOCYTES % (AUTO) 28.2 % (20.0-45.0); MEAN CORPUSCULAR VOLUME 86 FL (80-99); MONOCYTES % (AUTO) 11.3 % (1.0-10.0); NEUTROPHILS % (AUTO) 52.5 % (45.0-75.0); PLATELET COUNT 259 K/UL (150-450); RED BLOOD COUNT 6.11 M/UL (4.70-6.10); RED CELL DISTRIBUTION WIDTH 10.6 % (11.6-14.8); WHITE BLOOD COUNT 6.2 K/UL (4.8-10.8)
[2018-08-19 07:32] LABS: HEMOGLOBIN 18.2 G/DL (14.2-18.0)
[2018-08-19] MEDS: Augmentin 875mg Tab ORAL SCH ×2 (08:16→20:09)
--- NOTE | 2018-08-19 19:52 | Nephrology Progress Note ---
Assessment/Plan Assessment/Plan: A/P 1) Facial Cellulitis- No abscess - vancomycin and augmentin -DC tomorrow on bactrim plus augmentin for 7 days 2) Dehydration- resolved. 3) Patient requesting more pain medications. Morphine has been stopped 4) Erythrocytosis- heme cslted. Cleared for DC in am DC patient in am Subjective Date patient seen: Aug 19, 2018 Time patient seen: 19:51 ROS Limited/Unobtainable: No Allergies: Coded Allergies: No Known Allergies (Unverified , 08/12/18) Subjective Patient facial swelling and lip much improved and almost resolved Objective Last 24 Hour Vital Signs Date Time Temp Pulse Resp B/P (MAP) Pulse Ox O2 Delivery O2 Flow Rate FiO2 08/19/18 16:00 98.9 76 17 146/91 (109) 99 08/19/18 12:20 97.8 64 18 129/65 (86) 99 08/19/18 08:12 Room Air 08/19/18 07:48 98.0 65 18 138/94 (109) 99 08/19/18 04:00 97.9 69 18 137/90 (106) 99 08/19/18 00:00 99.1 67 18 144/89 (107) 98 08/18/18 21:00 Room Air 08/18/18 20:00 98.1 72 18 134/91 (105) 98 Intake and Output 08/18/18 08/19/18 19:00 07:00 Intake Total 1475.000 ml 1951.124 ml Balance 1475.000 ml 1951.124 ml Intake Oral 1200 ml 1400 ml IV Total 275.000 ml 551.124 ml # Voids 4 Laboratory Tests 08/19/18 06:05: White Blood Count 5.9, Red Blood Count 6.04, Hemoglobin 18.2*H, Hematocrit 52.8H , Mean Corpuscular Volume 87, Mean Corpuscular Hemoglobin 30.1, Mean Corpuscular Hemoglobin Concent 34.5, Red Cell Distribution Width 10.6L, Platelet Count 252, Mean Platelet Volume 7.3, Neutrophils (%) (Auto) 50.7, Lymphocytes (%) (Auto) 33.8, Monocytes (%) (Auto) 7.9, Eosinophils (%) (Auto) 5.3H, Basophils (%) (Auto) 2.2H, Sodium Level 140, Potassium Level 4.2, Chloride Level 102, Carbon Dioxide Level 33H, Anion Gap 6, Blood Urea Nitrogen 7 , Creatinine 1.0, Estimat Glomerular Filtration Rate > 60, Glucose Level 98, Calcium Level 9.7 08/19/18 07:13: White Blood Count 6.2, Red Blood Count 6.11H, Hemoglobin 18.2*H, Hematocrit 52.7H, Mean Corpuscular Volume 86, Mean Corpuscular Hemoglobin 29.7, Mean Corpuscular Hemoglobin Concent 34.5, Red Cell Distribution Width 10.6L, Platelet Count 259, Mean Platelet Volume 7.6, Neutrophils (%) (Auto) 52.5, Lymphocytes (%) (Auto) 28.2, Monocytes (%) (Auto) 11.3H, Eosinophils (%) (Auto) 5.8H, Basophils (%) (Auto) 2.2H, Erythropoietin [Pending] Height (Feet): 5 Height (Inches): 8.00 Weight (Pounds): 171 Objective right side of face and lip swelling almost resolved Jose Ayoub MD Aug 19, 2018 19:52
--- NOTE | 2018-08-19 19:54 | Discharge Instructions ---
Discharge Instructions Discharge Instructions Services at Discharge: day care Diet: regular Resume Normal Activity?: Yes Follow Up Orders DC on Bactrim and Augmentin 1 week F/U with Hematology 1 week post DC For Congestive Heart Failure Reminder Report to your physician any weight gain of 5 pounds or more in one week. Jose Ayoub MD Aug 19, 2018 19:54
[2018-08-20] MEDS: HYDROcodone/Acetamin 5/325 tab ORAL PRN ×3 (00:13→10:34)
--- NOTE | 2018-08-20 03:55 | Consultation ---
Consult Note Consult Note Hematology /Oncology Consultation DAX HALE: Smith Ayoub DOS 08/19/18 RFC: Erythrocytosis History of Present Illness This is a 28 year old male who states that he that he popped a pimple just inside of his right nare. He states that he began to experience swelling just under his nare and in his right side of his face. He denies fever or chills. He denies nausea or vomiting. Denies bleeding. We were consulted for Erythrocytosis and for further evaluation. Noted to have erythrocytosis and hematology was consulted. Past Medical History: Denies Social History: Denies: smoking, alcohol use, drug use Family HIstory: non contributory Allergies: Coded Allergies: No Known Allergies ROS: negative except mentioned in HPI PE General Appearance: no apparent distress, alert, GCS 15, non-toxic Head: normocephalic, atraumatic, other - R. nare with swelling just inferior to include R. upper lip and R. cheek. Eyes: bilateral eye normal inspection, bilateral eye PERRL ENT: hearing grossly normal, normal pharynx, no angioedema, normal voice Neck: full range of motion, supple/symm/no masses Respiratory: lungs clear, normal breath sounds Cardiovascular: regular rate, rhythm, no edema Musculoskeletal: back normal, gait/station normal, normal range of motion, non- tender Neurologic: alert, oriented x3, responsive, motor strength/tone normal, sensory intact, speech normal Psychiatric: memory normal, mood/affect normal, no suicidal/homicidal ideation Skin: warm/dry, Assessment/Plan ASSESSMENT AND RECC'S #. Secondary polycythemia or erythrocytosis is likely is related to dehydration , volume down --> may need a pulmonary evaluation for above, cxr has been reviewed and is unremarkable. --> sleep study may be necessary as outpatient --> trend hgb if consistently remains elevated, consider JAK2 --> outpatient monitor H/H # Facial Cellulitis --> ID following appreciate recs. --> CT reviewed there was no abcess. --> on abx treatment. #. Dehydration --> Nephro following. --> IVf have been given The timing of this note does not necessarily reflect the time of the patient was seen. GREATLY APPRECIATE CONSULTATION. Nasir De Leon MD Aug 20, 2018 03:55
[2018-08-20 04:00] VITALS: BP 133/88
[2018-08-20] MEDS: Vancomycin 1gm/D5W 275ml IVPB SCH ×2 (05:19)
[2018-08-20 08:00] VITALS: BP 126/66
[2018-08-20] MEDS: Augmentin 875mg Tab ORAL SCH (08:49)
--- NOTE | 2018-08-20 20:23 | Hematology/Onc Progress Note ---
Assessment/Plan Assessment/Plan ASSESSMENT AND RECC'S #. 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 Erythropoeitin is negative, reviewed --> may need a pulmonary evaluation for above, cxr has been reviewed and is unremarkable. --> sleep study may be necessary as outpatient --> trend hgb if consistently remains elevated, consider JAK2 --> outpatient monitor H/H --> may need sleep study if above negative # Facial Cellulitis --> ID following appreciate recs. --> CT reviewed there was no abcess. --> on abx treatment. #. Dehydration --> Nephro following. --> IVf have been given The timing of this note does not necessarily reflect the time of the patient was seen. GREATLY APPRECIATE CONSULTATION. Subjective Constitutional: Denies: no symptoms, chills, fever, malaise, weakness, other HEENT: Denies: no symptoms, eye pain, blurred vision, tearing, double vision, ear pain, ear discharge, nose pain, nose congestion, throat pain, throat swelling, mouth pain, mouth swelling, other Respiratory: Denies: no symptoms, cough, shortness of breath, SOB with excertion, SOB at rest, sputum, wheezing, other Gastrointestinal/Abdominal: Denies: no symptoms, abdomen distended, abdominal pain, black stools, tarry stools, blood in stool, constipated, diarrhea, difficulty swallowing, nausea, poor appetite, poor fluid intake, rectal bleeding , vomiting, other Genitourinary: Denies: no symptoms, burning, discharge, frequency, flank pain, hematuria, incontinence, pain, urgency, other Allergies: Coded Allergies: No Known Allergies (Unverified , 08/12/18) Subjective 08/20: no events, to be d/c today Objective Objective Last 24 Hour Vital Signs Date Time Temp Pulse Resp B/P (MAP) Pulse Ox O2 Delivery O2 Flow Rate FiO2 08/20/18 11:04 98.1 08/20/18 09:00 Room Air 08/20/18 08:00 98.1 85 20 126/66 (86) 98 08/20/18 04:00 97.7 66 17 133/88 (103) 99 08/19/18 23:47 98.8 84 17 119/68 (85) 97 08/19/18 21:00 Room Air 08/19/18 20:00 99.1 82 17 130/74 (92) 97 08/19/18 16:00 98.9 76 17 146/91 (109) 99 08/19/18 12:20 97.8 64 18 129/65 (86) 99 08/19/18 08:12 Room Air 08/19/18 07:48 98.0 65 18 138/94 (109) 99 08/19/18 04:00 97.9 69 18 137/90 (106) 99 08/19/18 00:00 99.1 67 18 144/89 (107) 98 08/18/18 21:00 Room Air Intake and Output 08/19/18 08/20/18 19:00 07:00 Intake Total 1566.292 ml 1178.708 ml Balance 1566.292 ml 1178.708 ml Intake Oral 1200 ml 720 ml IV Total 366.292 ml 458.708 ml # Voids 3 3 Labs Test 08/18/18 08:45 08/19/18 06:05 08/19/18 07:13 White Blood Count 6.3 K/UL (4.8-10.8) 5.9 K/UL (4.8-10.8) 6.2 K/UL (4.8-10.8) Red Blood Count 5.97 M/UL (4.70-6.10) 6.04 M/UL (4.70-6.10) 6.11 M/UL (4.70-6.10) Hemoglobin 17.8 G/DL (14.2-18.0) 18.2 G/DL (14.2-18.0) 18.2 G/DL (14.2-18.0) Hematocrit 49.2 % (42.0-52.0) 52.8 % (42.0-52.0) 52.7 % (42.0-52.0) Mean Corpuscular Volume 82 FL (80-99) 87 FL (80-99) 86 FL (80-99) Mean Corpuscular Hemoglobin 29.8 PG (27.0-31.0) 30.1 PG (27.0-31.0) 29.7 PG (27.0-31.0) Mean Corpuscular Hemoglobin Concent 36.1 G/DL (32.0-36.0) 34.5 G/DL (32.0-36.0) 34.5 G/DL (32.0-36.0) Red Cell Distribution Width 10.0 % (11.6-14.8) 10.6 % (11.6-14.8) 10.6 % (11.6-14.8) Platelet Count 240 K/UL (150-450) 252 K/UL (150-450) 259 K/UL (150-450) Mean Platelet Volume 6.3 FL (6.5-10.1) 7.3 FL (6.5-10.1) 7.6 FL (6.5-10.1) Neutrophils (%) (Auto) 60.2 % (45.0-75.0) 50.7 % (45.0-75.0) 52.5 % (45.0-75.0) Lymphocytes (%) (Auto) 23.2 % (20.0-45.0) 33.8 % (20.0-45.0) 28.2 % (20.0-45.0) Monocytes (%) (Auto) 10.0 % (1.0-10.0) 7.9 % (1.0-10.0) 11.3 % (1.0-10.0) Eosinophils (%) (Auto) 4.6 % (0.0-3.0) 5.3 % (0.0-3.0) 5.8 % (0.0-3.0) Basophils (%) (Auto) 2.1 % (0.0-2.0) 2.2 % (0.0-2.0) 2.2 % (0.0-2.0) Sodium Level 143 MMOL/L (136-145) 140 MMOL/L (136-145) Potassium Level 4.2 MMOL/L (3.5-5.1) 4.2 MMOL/L (3.5-5.1) Chloride Level 102 MMOL/L (98-107) 102 MMOL/L (98-107) Carbon Dioxide Level 34 MMOL/L (21-32) 33 MMOL/L (21-32) Anion Gap 7 mmol/L (5-15) 6 mmol/L (5-15) Blood Urea Nitrogen 10 mg/dL (7-18) 7 mg/dL (7-18) Creatinine 1.0 MG/DL (0.55-1.30) 1.0 MG/DL (0.55-1.30) Estimat Glomerular Filtration Rate > 60 mL/min (>60) > 60 mL/min (>60) Glucose Level 80 MG/DL (74-106) 98 MG/DL (74-106) Calcium Level 9.6 MG/DL (8.5-10.1) 9.7 MG/DL (8.5-10.1) Vancomycin Level Trough 19.9 ug/mL (5.0-12.0) Erythropoietin 5.3 mIU/mL (2.6-18.5) Height (Feet): 5 Height (Inches): 8.00 Weight (Pounds): 171 General Appearance: lethargic Neck: normal inspection Cardiovascular: regular rhythm Extremities: non-tender Neurologic: alert Skin: warm/dry Nasir De Leon MD Aug 20, 2018 20:23
--- NOTE | 2018-08-21 16:41 | Discharge Summary ---
Discharge Summary Discharge Summary _ DATE OF ADMISSION: 08/12/2018 DATE OF DISCHARGE: 08/20/2018 DISCHARGED BY: REASON FOR ADMISSION: 28 years old male with no significant past medical history, presented to emergency room for evaluation. Patient apparently popped a pimple just inside of his right nare 2 days ago. On the day prior to presentation to ED , he started to have swelling under his nare and on the right side of his face. Patient denied fever and chills Patient denied nausea and vomiting. Upon evaluation blood pressure was elevated 144/91, no fevers. Laboratory work-up revealed leukocytosis with WBC 13.1, hemoglobin 16.9, hematocrit 48.8, platelet count 201. Potassium 3.4. Stable other electrolytes and renal parameters. Lactic acid 1.0. Glucose 112. Maxillofacial CT scan revealed facial cellulitis , no evidence of abscess. Patient subsequently admitted for further management. CONSULTANTS: ID specialist it disaster recovery manager Dr. Ayoub marble cutter operator/oncologist Dr. De Leon HOSPITAL COURSE: Patient admitted and started on empiric antibiotics per r ID specialist recommendations. Blood culture revealed no growth Patient initially was on IV antibiotic , which changed to oral Bactrim and Augmentin for additional 7 days upon discharge to complete the course. Pain management was addressed. Supportive care provided. Leukocytosis resolved, no fevers. Facial cellulitis improved. Renal parameters and electrolytes were closely monitored, nephrotoxic avoided, and electrolytes corrected as needed. Line Tender followed . Patient had secondary polycythemia or erythrocytosis , which was possibly related to dehydration. Chest x-ray was unremarkable. Line Tender recommended trend hemoglobin as outpatient and if consistently elevated, consider JAK2 . Patient may benefit from a sleep study, if above negative. Patient clinically stabilized and was ready for discharge home FINAL DIAGNOSES: Right facial cellulitis Dehydration Secondary polycythemia or erythrocytosis DISCHARGE MEDICATIONS: See Medication Reconciliation list. DISCHARGE INSTRUCTIONS: Patient was discharged home. Follow up with primary care provider in one week. Closely monitor hemoglobin and hematocrit, if hemoglobin continued to be elevated , consider JAK2 as per marble cutter operator recommednations. Patient was recommended to have a sleep study as outpatient. I have been assigned to dictate discharge summary for this account. I was not involved in the patient's management. Fatemeh Rivera NP Aug 21, 2018 16:41
== END 2018-08-20 11:30 | disposition home or self-care (01) | DRG 383 ==
LOC: EMR 20:05 → 4E 22:02 → EDBEDREQ 23:02
DX: L03.211 Cellulitis of face (principal); D75.1 Secondary polycythemia; E86.0 Dehydration
CPT/HCPCS: 36415; 70487; 71045; 80048; 80053; 80202; 82248; 82668; 83605; 85025; 87040; 96361; 96365; 96375; 99285; J8499